=== PATIENT | female | born 1980 | race Caucasian/White ===

== ENCOUNTER 2022-06-03 08:45 | Outpatient (RCR) | payer MEDICAID, SELFPAY | END 2022-09-07 11:22 | disposition home or self-care (01) | PROVIDERS: PCP Family Medicine; Visit Provider Family Medicine | DX: M25.551 Pain in right hip (principal); M25.552 Pain in left hip; Z51.89 Encounter for other specified aftercare | CPT/HCPCS: 97110; 97112; 97140; 97161 ==